=== PATIENT | female | born 1970 | race Hispanic/Latino ===

== ENCOUNTER 2019-01-20 07:53 | Emergency (ER) | payer SELFPAY ==
[~2019-01-20] VITALS: Ht 147.3 cm; Wt 87.1 kg
[2019-01-20] MEDS ORDERED: DOXYCYCLINE HYCLATE TABLET 100 MG TAB PO ONE (08:15)
[2019-01-20] MEDS ORDERED: TRIMETHOPRIM/SULFAMETHOXAZOLE 160-800 MG TAB PO ONE (08:15)
== END 2019-01-20 08:28 | disposition home or self-care (01) ==
LOC: ER 07:53
DX: N61.1 Abscess of the breast and nipple (principal)
CPT/HCPCS: 36415; 82948; 99282